=== PATIENT | male | born 1985 | race Caucasian/White ===

== ENCOUNTER 2021-09-04 08:05 | Day surgery (SDC) | payer OTHER ==
[2021-09-04] MEDS ORDERED: CEFAZOLIN/NS 1gm 1 GM/50 ML BAG ONE (08:49)
[2021-09-04] MEDS ORDERED: Ringers Lactate 1,000 ML IV ONE ×2 (08:49→12:05)
[2021-09-04] MEDS ORDERED: MIDAZOLAM HCL 2 MG/2 ML INJ ONE (08:57)
[2021-09-04] MEDS ORDERED: propofoL 200 MG/20 ML VIAL IV ONE (08:57)
[2021-09-04] MEDS ORDERED: BUPIVACAINE 0.25% PF 10 ML VIAL ONE (08:58)
[2021-09-04] MEDS ORDERED: FENTANYL CITR 100 MCG/2 ML ONE (08:58)
[2021-09-04] MEDS ORDERED: dexAMETHasone 10 MG/ML VIAL ONE (08:58)
[2021-09-04] MEDS ORDERED: LIDOCAINE 2% MPF 5 ML VIAL ONE (08:58)
[2021-09-04] MEDS ORDERED: ONDANSETRON 4 MG/2 ML VIAL ONE (08:58)
[2021-09-04] MEDS ORDERED: KETOROLAC 30 MG/ML INJ ONE (08:58)
[2021-09-04] MEDS ORDERED: ACETAMINOPHEN 500 MG TAB PO ONE (09:45)
[2021-09-04] MEDS ORDERED: CELECOXIB 100 MG CAPSULE PO ONE (09:45)
[2021-09-04] MEDS ORDERED: CELECOXIB 100 MG CAPSULE ONE (10:05)
[2021-09-04] MEDS ORDERED: ACETAMINOPHEN 500 MG TAB ONE (10:05)
--- NOTE | 2021-09-04 11:38 | RAD REPORT ---
EXAM DESCRIPTION: RAD - Hand Right 2 View - 09/04/2021 11:31 am CLINICAL HISTORY: ORIF RT 4TH PINNING COMPARISON: No comparisons FINDINGS: Fluoroscopy time 0.1 minutes. Six fluoroscopy images submitted.
[2021-09-04] MEDS: MEPERIDINE HCL 25 MG/ML SYR ONE ×2 (11:41→11:46)
[2021-09-04 11:45] VITALS: O2SAT 99
[2021-09-04] MEDS ORDERED: CODEINE 30MG/APAP 300MG TAB ONE (13:08)
--- NOTE | 2021-09-04 13:26 | OP ---
Surgeon: Ge Torres MD Preoperative Diagnosis: Fracture of the right fourth proximal phalanx. Postoperative Diagnosis: Fracture of the right fourth proximal phalanx. Procedure Performed: Open reduction and internal fixation and splint. Anesthesia: General. Procedure In Detail: After satisfactory induction of general anesthesia, the right hand was prepped with Betadine scrub and Betadine paint. Dry sterile drapes were applied in the usual manner. The arm was elevated, exsanguinated with Esmarch. Tourniquet inflated to 250 mmHg. Hand was placed on a roll lock table. A curvilinear incision was made over the dorsum of the proximal phalanx of the ring finger. Dissection was proceeded down to the extensor tendon and was split longitudinally. Then, dissection was proceeded down to the fracture. The fracture was comminuted and angulated. Traction was placed on it and then drills were used. A 1 mm drill was used to drill hole through both fracture fragments and then a 1.3 drill over the most proximal portion with the screws in place. Then, lag technique was used. 1.3 mm screws were then locked in position. They were 11 mm long, 2 were placed. The C-arm revealed good reduction and screw with excellent placement. Tourniquet was released. Electrocautery was used for hemostasis the wound was closed with 5-0 PDS. The skin was closed with 4-0 Prolene vertical mattress simple sutures. Dressed with Xeroform, 2-inch Sarah, Kerlix, and a splint holding the wrist in 10 degrees of dorsiflexion, MCP, PIP, DIP 0. SAPPHIRE/SUSAN Voice ID: [id number] Report ID: [id number] [facility]el[facility]
[2021-09-04 14:06] VITALS: TEMP 97.1
[2021-09-04 14:07] VITALS: BP 130/85
== END 2021-09-04 13:20 | disposition home or self-care (01) ==
LOC: OR 08:05
PROVIDERS: ATTEND Specialist
PROC: 0PST04Z Reposition Right Finger Phalanx with Internal Fixation Device, Open Approach (ICD-10-PCS; principal; 2021-09-04 10:00)
DX: S62.644A Nondisplaced fracture of proximal phalanx of right ring finger, initial encounter for closed fracture (principal); Z20.822 Contact with and (suspected) exposure to COVID-19
CPT/HCPCS: 73120; 26735; U0003; J2704; J2250; J3010; J1100; J2175; J0690; J7120 ×2; J2405

== ENCOUNTER 2025-09-28 11:57 | Emergency (ER) | payer OTHER, SELFPAY ==
[2025-09-28] MEDS ORDERED: LIDOCAINE 2% W/EPI 1:200,000 MPF 20 ML VIAL IM ONE (12:16)
[2025-09-28] MEDS ORDERED: TDAP (DIPHTH,PERTUSS(ACELL),TET VAC) 0.5 ML VIAL IMVAC ONE (12:17)
--- NOTE | 2025-09-28 12:28 | RAD REPORT ---
EXAM: Hand Left 3 View HISTORY: PAIN COMPARISON: None FINDINGS: Bones: No acute fracture identified. Alignment:No significant malalignment. Degenerative changes:None significant. Other: n/a IMPRESSION: No acute osseous abnormality involving the imaged hand.
--- NOTE | 2025-09-28 12:45 | EDPHYS ---
Physician Documentation [facility] Name: Jose Melgar Age: 40 yrs Sex: Male : 1985 Arrival Date: 09/28/2025 Time: 11:57 Bed 14 Private MD: ED Physician Christopher Solis HPI: 09/28 13:59 This 40 yrs old Male presents to ER via Ambulatory with complaints of dr5 Laceration To Hand. 13:59 Onset: The symptoms/episode began/occurred acutely. Patient is a 40-year-old male with dr5 no past medical history coming in with a laceration to the palm of left hand that occurred approximately 3:00 this morning. Patient states he was drinking alcohol last night and excellently punched a mirror. Patient denies numbness / tingling.. Historical: - Allergies: 12:05 No Known Allergies; dd2 - PMHx: 12:05 None; dd2 - PSHx: 12:05 None; dd2 - Immunization history:: Adult Immunizations unknown. - Infectious Disease History:: Denies. - Social history:: Smoking status: Reported history of juuling and/or vaping. ROS: 13:59 Constitutional: as per hpi dr5 Exam: 13:59 Constitutional: This is a well developed, well nourished patient who is awake, alert, dr5 and in no acute distress. Head/Face: Normocephalic, atraumatic. Eyes: Pupils equal round and reactive to light, extra-ocular motions intact. Lids and lashes normal. Conjunctiva and sclera are non-icteric and not injected. Cornea within normal limits. Periorbital areas with no swelling, redness, or edema. ENT: Nares patent. No nasal discharge, no septal abnormalities noted. Tympanic membranes are normal and external auditory canals are clear. Oropharynx with no redness, swelling, or masses, exudates, or evidence of obstruction, uvula midline. Mucous membranes moist. Neck: Trachea midline, no thyromegaly or masses palpated, and no cervical lymphadenopathy. Supple, full range of motion without nuchal rigidity, or vertebral point tenderness. No Meningismus. Chest/axilla: Normal chest wall appearance and motion. Nontender with no deformity. No lesions are appreciated. Cardiovascular: Regular rate and rhythm with a normal S1 and S2. Normal PMI, no JVD. No pulse deficits. Respiratory: Lungs have equal breath sounds bilaterally, clear to auscultation. No rales, rhonchi or wheezes noted. No increased work of breathing, no retractions or nasal flaring. Back: No spinal tenderness. No costovertebral tenderness. Full range of motion. MS/ Extremity: Pulses equal, no cyanosis. Neurovascular intact. Full, normal range of motion. Neuro: Awake and alert, GCS 15, oriented to person, place, time, and situation. Cranial nerves II-XII grossly intact. Motor strength 5/5 in all extremities. Sensory grossly intact. Cerebellar exam normal. Normal gait. 13:59 Skin: injury, laceration(s), the wound is approximately 2 cm(s), of the heel of left hand, Vital Signs: 12:03 BP 123 / 75; Pulse 91; Resp 16; Temp 98.9; Pulse Ox 100% ; Weight 86.18 kg; Height 6 dd2 ft. 0 in. ; Pain 8/10; 13:00 BP 121 / 72; Pulse 88; Resp 20; Temp 98.6; Pulse Ox 100% on R/A; kj2 12:03 Body Mass Index 25.77 (86.18 kg, 182.88 cm) dd2 12:03 Pain Scale: Adult dd2 Laceration: 13:59 Wound Repair of 2cm ( 0.8in ) subcutaneous laceration to heel of left hand. Linear dr5 shaped.. Distal neuro/vascular/tendon intact. Anesthesia: Local anesthetic administered with 2 mls of 1% lidocaine w/ Epi. Wound prep: Simple cleansing by me. Skin closed with 6 4-0 Prolene using simple sutures and sterile technique. Dressed with non-adherent dressing. Patient tolerated well. MDM: 12:01 Medical Screening Exam initiated dr5 14:05 Differential diagnosis: superficial laceration, Laceration, Abrasion, Contusion. Data dr5 reviewed: vital signs, nurses notes, radiologic studies, plain films. Consideration of Admission/Observation Escalation of care including admission/observation considered. Escalation considered patient found to have tendon involvement. I considered the following discharge prescriptions or medication management in the emergency department I discussed and recommended Over The Counter medications, Medications were administered in the Emergency Department. See MAR. Independent interpretation of the following test(s) in the Emergency Department X-Ray: My interpretation is Independent interpretation of x-ray does not reveal tendon involvement or fracture. Historians other than the Patient: Spouse/Significant Other: Significant other. Care significantly affected by the following Social Determinants of Health: Poor access to healthcare and/or lack of insurance, Poor access to transportation, Problems related to employment. Counseling: I had a detailed discussion with the patient and/or guardian regarding the historical points, exam findings, and any diagnostic results supporting the discharge/admit diagnosis, the presence of at least one elevated blood pressure reading (>120/80) during this emergency department visit, radiology results, the need for outpatient follow up, for definitive care, a family practitioner, a orthopedic surgeon, to return to the emergency department if symptoms worsen or persist or if there are any questions or concerns that arise at home. Medication response: Lidocaine. Response to treatment: the patient's symptoms have resolved after treatment, the patient is now symptom free. Special discussion: I discussed with the patient/guardian in detail that at this point there is no indication for admission to the hospital. It is understood, however, that if the symptoms persist or worsen the patient needs to return immediately for re-evaluation. Based on the history and exam findings, there is no indication for further emergent testing or inpatient evaluation. I discussed with the patient/guardian the need to see the primary care provider for further evaluation of the symptoms. ED course: X-ray does not have fracture on it. Well-approximated wound to palm. Will have patient removed sutures in 10 to 14 days. All question answered. Tetanus updated. Keflex prescribed for infection prevention. All questions answered. Strict ER precautions given. 09/28 12:08 Order name: Hand Left 3 View XRAY; Complete Time: 12:43 dr5 09/28 12:08 Order name: Dressing - Wound; Complete Time: 13:00 dr5 09/28 12:08 Order name: Gloves, Sterile; Complete Time: 12:47 dr5 09/28 12:08 Order name: Prolene, Sutures; Complete Time: 12:21 dr5 09/28 12:08 Order name: Setup Suture Tray; Complete Time: 12:21 dr5 Administered Medications: 12:21 Drug: Boostrix Tdap IM 0.5 ml IM once; as a single dose Route: IM; Site: right deltoid; kj2 12:48 Follow up: Response: No adverse reaction kj2 12:47 Drug: Lidocaine-Epinephrine Infiltration -1%: (1:100,000) 20 ml 20 ml Infiltration kj2 once; to bedside {Note: given by provider.} Volume: 20 ml; Route: Infiltration; 12:47 Follow up: Response: No adverse reaction kj2 Disposition: 14:39 Co-signature as Attending Physician, Christopher Solis MD I reviewed the patient's care rn provided by the Advanced Practice Provider and agree with the diagnosis and treatment plan. Disposition Summary: 09/28/25 12:45 Discharge Ordered Notes: Location: Home dr5 Condition: Stable dr5 Diagnosis - Laceration of deep palmar arch of left hand dr5 Followup: dr5 - With: Emergency Department - When: As needed - Reason: Worsening of condition Followup: dr5 - With: Private Physician - When: 10 - 14 days - Reason: Staple/Suture removal Discharge Instructions: - Discharge Summary Sheet dr5 - Laceration Care, Adult dr5 Forms: - Medication Reconciliation Form dr5 - Patient Portal Instructions dr5 - Leadership Thank You Letter dr5 Prescriptions: - Cephalexin 500 mg Oral Capsule - take 1 capsule ORAL route every 12 hours for 10 days; 20 capsule; Refills: 0, dr5 Product Selection Permitted Signatures: Dispatcher [employer] EDMS Christopher Solis MD MD rn Jordan, Krystal, RN RN kj2 ELVIN WASHINGTON RN RN dd2 Antonio Morelos, CONSUELO-C [address] MAN-Cdr5
--- NOTE | 2025-09-28 12:45 | ER ---
Nurse's Notes [facility] Name: Jose Melgar Age: 40 yrs Sex: Male : 1985 Arrival Date: 09/28/2025 Time: 11:57 Bed 14 Private MD: Diagnosis: Laceration of deep palmar arch of left hand Presentation: 09/28 12:03 Chief complaint: Patient states: HE WOKE UP TO A LACERATION TO THE LT HAND. PT REPORTS dd2 WAS DRINKING AND BELIEVES HE PUNCHED A MIRROR. Coronavirus screen: Ebola Screen: No symptoms or risks identified at this time. Complicating Factors: There are no complicating factors for this patient. Initial Sepsis Screen: Does the patient meet any 2 criteria? No. Patient's initial sepsis screen is negative. Does the patient have a suspected source of infection? No. Patient's initial sepsis screen is negative. Risk Assessment: Do you want to hurt yourself or someone else? Patient reports no desire to harm self or others. Onset of symptoms. 12:03 Method Of Arrival: Ambulatory dd2 12:03 Acuity: LADY 3 dd2 Triage Assessment: 12:05 General: Appears in no apparent distress. uncomfortable, Behavior is calm, cooperative, dd2 appropriate for age. Pain: Complains of pain in left hand Pain currently is 8 out of 10 on a pain scale. Derm: Wound noted medial aspect of left hand Bruising that is dark purple, on left hand. Musculoskeletal: Swelling present in left hand. Injury Description: Bruise sustained to left hand. Injury Description: Laceration sustained to medial aspect of left hand was sustained 6-12 hours ago. is bleeding moderately. Historical: - Allergies: 12:05 No Known Allergies; dd2 - PMHx: 12:05 None; dd2 - PSHx: 12:05 None; dd2 - Immunization history:: Adult Immunizations unknown. - Infectious Disease History:: Denies. - Social history:: Smoking status: Reported history of juuling and/or vaping. Screenin:25 [facility] ED Fall Risk Assessment (Adult) History of falling in the last 3 months, kj2 including since admission No falls in past 3 months (0 pts) Confusion or Disorientation No (0 pts) Intoxicated or Sedated No (0 pts) Impaired Gait No (0 pts) Mobility Assist Device Used No (0 pt) Altered Elimination No (0 pt) Score/Fall Risk Level 0 - 2 = Low Risk Maintained a safe environment, Hourly rounding (assess needs \T\ fall precautionary measures) done. Abuse screen: Denies threats or abuse. Denies injuries from another. Nutritional screening: No deficits noted. Tuberculosis screening: No symptoms or risk factors identified. Assessment: 12:23 General: Appears in no apparent distress. Behavior is cooperative. Pain: Complains of kj2 pain in medial aspect of left hand and left hand Pain currently is 7 out of 10 on a pain scale. Neuro: Level of Consciousness is awake, Oriented to person, place, time, situation. Cardiovascular: Patient's skin is warm and dry. Respiratory: Airway Respiratory effort is unlabored. GI: No signs and/or symptoms were reported involving the gastrointestinal system. : No signs and/or symptoms were reported regarding the genitourinary system. 12:47 Injury Description: Laceration is not bleeding. kj2 Vital Signs: 12:03 BP 123 / 75; Pulse 91; Resp 16; Temp 98.9; Pulse Ox 100% ; Weight 86.18 kg; Height 6 dd2 ft. 0 in. ; Pain 8/10; 13:00 BP 121 / 72; Pulse 88; Resp 20; Temp 98.6; Pulse Ox 100% on R/A; kj2 12:03 Body Mass Index 25.77 (86.18 kg, 182.88 cm) dd2 12:03 Pain Scale: Adult dd2 ED Course: 11:59 Patient arrived in ED. al6 12:01 Antonio Morelos F[facility]-C [facility]. dr5 12:01 Christopher Solis MD is Attending Physician. dr5 12:05 Triage completed. dd2 12:05 Arm band placed on right wrist. dd2 12:13 Renetta Hope, VALDEZ is Primary Nurse. kj2 12:23 Hand Left 3 View XRAY In Process Unspecified. EDMS 12:26 Patient has correct armband on for positive identification. Bed in low position. Call kj2 light in reach. Adult w/ patient. Provided Education on: call light. 12:46 Assist provider with laceration repair Set up tray. Dressed with 4X4s, Kerlix. Patient kj2 did not have IV access during this emergency room visit. Administered Medications: 12:21 Drug: Boostrix Tdap IM 0.5 ml IM once; as a single dose Route: IM; Site: right deltoid; kj2 12:48 Follow up: Response: No adverse reaction kj2 12:47 Drug: Lidocaine-Epinephrine Infiltration -1%: (1:100,000) 20 ml 20 ml Infiltration kj2 once; to bedside {Note: given by provider.} Volume: 20 ml; Route: Infiltration; 12:47 Follow up: Response: No adverse reaction kj2 Medication: 13:01 Vaccine Information Statement (VIS) provided today. Questions and/or concerns kj2 addressed. VIS edition date: July 04, 2021. Outcome: 12:45 Discharge ordered by . dr5 12:46 Discharged to home ambulatory, with friend, kj2 12:46 Condition: stable 12:46 Discharge instructions given to patient, Instructed on discharge instructions, follow up and referral plans. Demonstrated understanding of instructions, follow-up care, 13:01 Patient left the ED. kj2 Signatures: Dispatcher [employer] EDRenetta Little RN RN kj2 ELVIN WASHINGTON RN RN dd2 Antonio Morelos, LASER ENGRAVER-C LASER ENGRAVER-[facility]5 Leslie Mark6
[2025-09-28 13:05] VITALS: O2SAT 100
[2025-09-28 13:06] VITALS: BP 121/72; TEMP 98.6
== END 2025-09-28 13:01 | disposition home or self-care (01) ==
LOC: ER 11:57
PROC: 0HQGXZZ Repair Left Hand Skin, External Approach (ICD-10-PCS; principal; 2025-09-28)
DX: S61.412A Laceration without foreign body of left hand, initial encounter (principal)
CPT/HCPCS: 12001; 90715; 96372; 99284